=== PATIENT | female | born 1980 | race Caucasian/White ===

== ENCOUNTER 2021-12-25 15:12 | Outpatient (CLI) | payer MEDICAID, SELFPAY ==
[2021-12-25 19:12] LABS: Chlamydia DNA Amplified* NOT DETECTED (No Detected); GC DNA Amplified* NOT DETECTED (No Detected)
== END 2021-12-25 15:13 | disposition home or self-care (01) ==
PROVIDERS: Visit Provider Registered Nurse
DX: R10.2 Pelvic and perineal pain (principal); R35.0 Frequency of micturition
CPT/HCPCS: 87086; 87186; 87491; 87591

== ENCOUNTER 2021-12-28 20:45 | Emergency (ER) | payer MEDICAID, SELFPAY ==
[2021-12-28 21:11] VITALS: BP 112/69; PULSE 74; RESP 18; TEMP 37; O2SAT 99; BMI 22.5
--- NOTE | 2021-12-28 21:30 | ED.SKABFB ---
HPI - Skin/Abscess/Foreign Bdy General Chief complaint: Skin/Abscess/Foreign Body Stated complaint: rash on chest, asthma Time Seen by Provider: 12/28/21 21:14 History of Present Illness HPI narrative: This 41-year-old female comes in reporting a generalized pruritic maculopapular rash to began 2 hours ago. She does not report any shortness of breath. She does not have any signs of angioedema. She has been taking Macrobid for urinary tract infection these past 4 days. Though symptoms of dysuria have completely resolved. She states that she did eat shrimp recently but has tolerated this in the past. Related Data Home Medications Medication Instructions Recorded Confirmed cholecalciferol (vitamin D3) 25 25 mcg PO QDAY 12/25/21 12/25/21 mcg (1,000 unit) capsule multivitamin (Multiple Vitamins 1 tab PO QAM 12/25/21 12/25/21 tablet) Previous Rx's Medication Instructions Recorded nitrofurantoin 100 mg PO BID #10 caps 12/25/21 monohydrate/macrocrystals 100 mg capsule (Macrobid) Allergies Allergy/AdvReac Type Severity Reaction Status Date / Time No Known Drug Allergies Allergy Verified 12/25/21 14:46 Review of Systems Status of ROS: Reports: 10 or more systems reviewed and unremarkable except as noted in History and below Narrative: Constitutional: No fevers, no weight gain or loss. Eyes: No discharge. No vision changes. HENT: No congestion, no sore throat, no ear pain. Cardiovascular: No chest pain, no palpitations. Respiratory: No shortness of breath, no wheezes, no cough. Gastrointestinal: No abdominal pain, no vomiting, no diarrhea. Genitourinary: No dysuria, no hematuria. Musculoskeletal: Normal range of motion. Skin: Generalized pruritic rash. Neurological: No dizziness, weakness, sensory change, speech change. Endo/Heme/Allergies: No bruising or bleeding. No polydipsia. Pysch: no suicidality, no anxiety, no insomnia. All other systems reviewed and are negative. PFSH PFSH Surgical History H/O tubal ligation History of colposcopy Family History Father Colon cancer High blood pressure Sister Thyroid disease Exam Narrative: Exam Narrative: Constitutional: Well-developed, well-nourished, no acute distress. HEENT: Normocephalic, atraumatic. Neck: Normal range of motion. Nontender. Supple. Heart: Regular. No murmurs. Normal rate. Intact distal pulses. Lungs: Clear to auscultation. No chest discomfort. No wheezes, rhonchi, or rales. Abdomen: Normal bowel sounds. Nontender. No rebound tenderness. Genitalia: Deferred. Back: No midline tenderness. Normal range of motion. Extremities: Normal range of motion. No injury. Skin: Intact. Warm. No erythema or pallor. Generalized maculopapular rash on trunk and extremities which is pruritic. Neurologic: No altered sensation. No weakness. Alert and oriented. Psychiatric: No suicidality. No anxiety or depression. No insomnia. Nursing notes and vitals signs are reviewed. Const: Vital Signs, click to edit/add: Vital Signs - 24 hr 12/28/21 21:11 Temperature 98.6 F Pulse Rate [Right Pulse Oximeter] 74 Respiratory Rate 18 Blood Pressure [Ri ght Upper Arm] 112/69 Pulse Oximetry 99 Oxygen Delivery Me thod Room Air Course Vital Signs Vital signs: Initial Vital Signs Temperature 98.6 F 12/28/21 21:11 Temperature Source Temporal Artery Scan 12/28/21 21:11 Pulse Rate 74 12/28/21 21:11 Respiratory Rate 18 12/28/21 21:11 Blood Pressure 112/69 12/28/21 21:11 Blood Pressure Mean 83 12/28/21 21:11 Blood Pressure Position Sitting 12/28/21 21:11 Pulse Oximetry 99 12/28/21 21:11 Oxygen Delivery Method 12/28/21 21:11 Vital Signs Temperature 98.6 F 12/28/21 21:11 Pulse Rate 74 12/28/21 21:11 Respiratory Rate 18 12/28/21 21:11 Blood Pressure 112/69 12/28/21 21:11 Pulse Oximetry 99 12/28/21 21:11 Oxygen Delivery Method 12/28/21 21:11 Temperature 98.6 F 12/28/21 21:11 Pulse Rate 74 12/28/21 21:11 Respiratory Rate 18 12/28/21 21:11 Blood Pressure 112/69 12/28/21 21:11 Pulse Oximetry 99 12/28/21 21:11 Oxygen Delivery Method 12/28/21 21:11 MDM - Skin/Abscess/Foreign Bdy MDM Narrative Medical decision making narrative: This patient comes in with a rash that started a couple hours prior to arrival. She is not showing any signs of angioedema. I explained that it is often a mystery as to what is causing the rash. There is some suspicion with the Macrobid she has been taking but I explained there is no testing that will identify this at this time. Her dysuria symptoms have completely resolved and she has taken this medicine for 4 days. I advised her to discontinue it. She did receive an oral dose of dexamethasone 10 mg and advised her to use [id number] antihistamines as needed and directed. Discharge Plan Discharge Clinical Impression: Allergic reaction Patient Disposition: Home, Self-Care Condition: Stable Additional Instructions: Use [id number] medicines such as antihistamines or hydrocortisone cream as needed and directed. Follow up with MD or return if worsening. Prescriptions: No Action multivitamin [Multiple Vitamins] Tablet 1 tab PO QAM cholecalciferol (vitamin D3) 25 mcg (1,000 unit) capsule 25 mcg PO QDAY nitrofurantoin monohyd/m-cryst [Macrobid] 100 mg capsule 100 mg PO BID Qty: 10 0RF Rx Instructions: must administer with a meal/food Follow Up/Referrals: Provider,Not a Local [Primary Care Provider] - Stand Alone Forms: [employer] Info Instructions
[2021-12-28] MEDS: dexAMETHasone 10 MG/ML inj PO (21:34)
[2021-12-28 22:00] VITALS: BP 110/78; PULSE 70; RESP 18; TEMP 37; O2SAT 99
== END 2021-12-28 22:05 | disposition home or self-care (01) ==
LOC: ED 21:36
PROVIDERS: Emergency Provider Emergency Medicine Emergency Medical Services
DX: T78.40XA Allergy, unspecified, initial encounter (principal); X58.XXXA Exposure to other specified factors, initial encounter
CPT/HCPCS: 99283; 99284; J1100

== ENCOUNTER 2022-01-06 15:39 | Emergency (ER) | payer MEDICAID, SELFPAY ==
[2022-01-06 15:57] VITALS: BP 107/69; PULSE 114; RESP 18; TEMP 36.9; O2SAT 97; BMI 25.7
[2022-01-06 16:45] LABS: PCR FLU A POSITIVE PCR FLU A (Negative); PCR FLU B Negative PCR FLU B (Negative); PCR RSV Negative PCR RSV (Negative)
[2022-01-06 16:52] LABS: SARS PCR* Negative SARS-CoV-2 (Negative)
--- NOTE | 2022-01-06 18:08 | ED.GENADULT ---
HPI - General Adult General Chief complaint: Cough Stated complaint: Fever, Painful Cough Time Seen by Provider: 01/06/22 17:00 History of Present Illness HPI narrative: This 41-year-old female comes in reporting upper respiratory symptoms including cough, nasal congestion, and chest discomfort when coughing. She has felt chilled but did not measure a temperature. These symptoms started yesterday. She states that she has a history of asthma and has been using her inhaler. She does not report significant shortness of breath. Related Data Home Medications Medication Instructions Recorded Confirmed cholecalciferol (vitamin D3) 25 25 mcg PO QDAY 12/25/21 12/25/21 mcg (1,000 unit) capsule multivitamin (Multiple Vitamins 1 tab PO QAM 12/25/21 12/25/21 tablet) Previous Rx's Medication Instructions Recorded nitrofurantoin 100 mg PO BID #10 caps 12/25/21 monohydrate/macrocrystals 100 mg capsule (Macrobid) ciprofloxacin HCl 500 mg tablet 500 mg PO BID #10 tabs 12/29/21 (Cipro) acetaminophen 300 mg-codeine 30 mg 1 tab PO Q6H PRN pain #20 tabs 01/06/22 tablet methylprednisolone 4 mg tablets in See Rx Instructions PO .COMPLEX 01/06/22 a dose pack (Medrol (Levon)) #21 ea oseltamivir 75 mg capsule (Tamiflu) 75 mg PO BID 5 days #10 caps 01/06/22 Allergies Allergy/AdvReac Type Severity Reaction Status Date / Time No Known Drug Allergies Allergy Verified 12/25/21 14:46 Review of Systems Status of ROS: Reports: 10 or more systems reviewed and unremarkable except as noted in History and below Narrative: Constitutional: No weight gain or loss. She has had chills. Eyes: No discharge. No vision changes. HENT: No congestion, no sore throat, no ear pain. Cardiovascular: No chest pain, no palpitations. Respiratory: No shortness of breath, no wheezes. She reports coughing. Gastrointestinal: No abdominal pain, no vomiting, no diarrhea. Genitourinary: No dysuria, no hematuria. Musculoskeletal: Normal range of motion. Skin: No rashes, no pruritis. Neurological: No dizziness, weakness, sensory change, speech change. Endo/Heme/Allergies: No bruising or bleeding. No polydipsia. Pysch: no suicidality, no anxiety, no insomnia. All other systems reviewed and are negative. [facility] Medical History (Updated 01/06/22 @ 18:11 by Liam Callahan MD) Asthma Surgical History H/O tubal ligation History of colposcopy Family History Father Colon cancer High blood pressure Sister Thyroid disease Social History Smoking Status: Never smoker Do you use any of these nicotine containing products: None Second hand tobacco smoke exposure: No How often do you have a drink containing alcohol: never How often do you have six or more drinks on one occasion: Never AUDIT-C Alcohol total score: 0 Non-prescribed substance use: denies use Exam Narrative: Exam Narrative: Constitutional: Well-developed, well-nourished, no acute distress. HEENT: Normocephalic, atraumatic. Neck: Normal range of motion. Nontender. Supple. Heart: Regular. No murmurs. Tachycardia, rate 114 beats per minute. Intact distal pulses. Lungs: Clear to auscultation. No chest discomfort. No wheezes, rhonchi, or rales. Abdomen: Normal bowel sounds. Nontender. No rebound tenderness. Genitalia: Deferred. Back: No midline tenderness. Normal range of motion. Extremities: Normal range of motion. No injury. Skin: Intact. No rash. Warm. No erythema or pallor. Neurologic: No altered sensation. No weakness. Alert and oriented. Psychiatric: No suicidality. No anxiety or depression. No insomnia. Nursing notes and vitals signs are reviewed. Const: Vital Signs, click to edit/add: Vital Signs - 24 hr 01/06/22 15:57 Temperature 98.4 F Pulse Rate [Right Pulse Oximeter] 114 H Respiratory Rate 18 Blood Pressure [Ri ght Upper Arm] 107/69 Pulse Oximetry 97 Oxygen Delivery Me thod Room Air Course Vital Signs Vital signs: Initial Vital Signs Temperature 98.4 F 01/06/22 15:57 Temperature Source Temporal Artery Scan 01/06/22 15:57 Pulse Rate 114 H 01/06/22 15:57 Respiratory Rate 18 01/06/22 15:57 Blood Pressure 107/69 01/06/22 15:57 Blood Pressure Mean 81 01/06/22 15:57 Blood Pressure Position Sitting 01/06/22 15:57 Pulse Oximetry 97 01/06/22 15:57 Oxygen Delivery Method 01/06/22 15:57 Vital Signs Temperature 98.4 F 01/06/22 15:57 Pulse Rate 114 H 01/06/22 15:57 Respiratory Rate 18 01/06/22 15:57 Blood Pressure 107/69 01/06/22 15:57 Pulse Oximetry 97 01/06/22 15:57 Oxygen Delivery Method 01/06/22 15:57 Temperature 98.4 F 01/06/22 15:57 Pulse Rate 114 H 01/06/22 15:57 Respiratory Rate 18 01/06/22 15:57 Blood Pressure 107/69 01/06/22 15:57 Pulse Oximetry 97 01/06/22 15:57 Oxygen Delivery Method 01/06/22 15:57 Medical Decision Making MDM Narrative Medical decision making narrative: A swab is obtained to evaluate for COVID, influenza, and RSV. This returns positive for influenza A. The patient has normal vital signs other than increased heart rate. She is okay to return home. She received prescriptions for Tamiflu, Tylenol 3, and Medrol Dosepak. I describe signs and symptoms that would indicate a need for return and re-evaluation. At the time of discharge the patient appears safe for outpatient management. The treatment plan is reviewed along with written and verbal return precautions. Reasons to return and the importance of close followup were also reviewed. Lab Data Labs: Lab Results 01/06/22 Range/Units 16:02 SARS-CoV-2 (PCR) Negative SARS-CoV-2 (Negative) Influenza Type A (PCR) POSITIVE PCR FLU A A (Negative) Influenza Type B (PCR) Negative PCR FLU B (Negative) RSV (PCR) Negative PCR RSV (Negative) Discharge Plan Discharge Clinical Impression: Influenza A Patient Disposition: Home, Self-Care Condition: Stable Additional Instructions: Take medications as needed and indicated. Follow up with MD or return if worsening. Prescriptions: New acetaminophen-codeine 300-30 mg tablet 1 tab PO Q6H PRN (Reason: pain) Qty: 20 0RF oseltamivir [Tamiflu] 75 mg capsule 75 mg PO BID 5 Days Qty: 10 0RF methylprednisolone [Medrol (Levon)] 4 mg tablets,dose pack See Rx Instructions .ROUTE .COMPLEX Qty: 21 0RF Rx Instructions: orally per package directions No Action multivitamin [Multiple Vitamins] Tablet 1 tab PO QAM cholecalciferol (vitamin D3) 25 mcg (1,000 unit) capsule 25 mcg PO QDAY nitrofurantoin monohyd/m-cryst [Macrobid] 100 mg capsule 100 mg PO BID Qty: 10 0RF Rx Instructions: must administer with a meal/food ciprofloxacin HCl [Cipro] 500 mg tablet 500 mg PO BID Qty: 10 0RF Follow Up/Referrals: Provider,Not a Local [Primary Care Provider] - Stand Alone Forms: [employer] Info Instructions
== END 2022-01-06 18:25 | disposition home or self-care (01) ==
LOC: ED 18:18
PROVIDERS: Emergency Provider Emergency Medicine Emergency Medical Services
DX: J10.1 Influenza due to other identified influenza virus with other respiratory manifestations (principal)
CPT/HCPCS: 87502; 87634; 87635; 99283; 99284

== ENCOUNTER 2023-04-08 14:04 | Outpatient (CLI) | payer MEDICAID, SELFPAY | END 2023-04-08 14:05 | disposition home or self-care (01) | PROVIDERS: Visit Provider Obstetrics & Gynecology | DX: Z13.220 Encounter for screening for lipoid disorders (principal); Z86.2 Personal history of diseases of the blood and blood-forming organs and certain disorders involving the immune mechanism; R53.83 Other fatigue | CPT/HCPCS: 80061; 82306; 83540; 83550; 84443 ==

== ENCOUNTER 2023-04-22 14:39 | Outpatient (CLI) | payer MEDICAID, SELFPAY ==
--- NOTE | 2023-04-22 15:00 | US_ITS ---
Patient: ESTEPHANIA LADD Facility:?[facility] Patient ID:?[id number] Site Patient ID:?[id number]. Site :?[id number] Study:?US-OB Pelvis TA/TV Pelvic US-04/22/2023 4:45:13 PM Ordering Physician:Zoey Leos Final Report: INDICATION: Pelvic pain. TECHNIQUE: Ultrasound pelvis transabdominal. COMPARISON: None. FINDINGS: Uterus: 9 x 6 x 4 cm. Anterior fundal intramural fibroid measures 9 mm. Endometrium: Transvaginal imaging was performed to better evaluate the endometrium. Endometrial thickness measures 14 mm. There are 2 small echogenic lesions in the endometrium which could represent polyps with internal color Doppler blood flow. Right ovary measures 3 x 2 x 2 cm and left ovary measures 3 x 3 x 2 cm. No suspicious ovarian or adnexal lesions. Color Doppler blood flow is demonstrated in the ovaries. Cul-de-sac: No significant free fluid. IMPRESSION: 1. Solitary small 9 mm uterine fibroid. 2. Suspected endometrial polyps. . Dictated by Dion Borja MD @ 04/25/2023 1:52:47 AM Signed by:?Dion Borja MD @04/25/2023 1:52:47 AM (Electronic Signature)
== END 2023-04-22 14:40 | disposition home or self-care (01) ==
LOC: US 14:40
PROVIDERS: Visit Provider Obstetrics & Gynecology
DX: R10.2 Pelvic and perineal pain (principal); D25.9 Leiomyoma of uterus, unspecified; R10.32 Left lower quadrant pain
CPT/HCPCS: 76830; 76856

== ENCOUNTER 2023-06-08 08:13 | Day surgery (SDC) | payer MEDICAID, SELFPAY ==
--- OUTSIDE RECORDS SUMMARY | 2023-06-08 08:17 | XMS_ITS | Clinical Summary ---
Author Name Unknown Organization [employer] [facility] Address [place], [place] [address] Care Team Providers Care Crawler Tractor Operator Name Role Phone [facility] Primary Care Provider [phone] Allergies No known active allergies Medications Medication Sig Dispensed Refills Start Date End Date Status albuterol HFA (PRO-AIR; VENTOLIN; PROVENTIL) 90 mcg/actuation inhalerIndications: Mild persistent asthma without complication Inhale 2 Puffs by mouth 4 times daily if needed for Shortness Of Breath or Wheezing. 1 Each 09/14/2021 Active meclizine (ANTIVERT) 25 mg tabletIndications:L ightheadedness,Dizz iness Take 1 Tablet (25 mg) by mouth 3 times daily if needed for Vertigo or Motion Sickness. 30 Tablet 07/23/2021 4 Discontinued (*Patient states no longer taking) codeine-guaiFENesin (ROBITUSSIN AC) 10-100 mg/5 mL liquidIndications:U pper respiratory tract infection, unspecified type Take 5-10 mL by mouth every 6 hours if needed for Cough. Max dose 60 mL per 24 hrs. 236 mL 09/14/2021 4 Discontinued (*Med complete/Reg imen complete/Lev el of care change) calcium carbonate-vitamin D3, 600 mg-400 unit, 600 mg-10 mcg (400 unit) tabletIndications:V itamin D insufficiency Take 1 Tablet by mouth two times daily with meals. 200 Tablet 4 12/28/2021 4 Discontinued (*Patient states no longer taking) methylPREDNISolone (MEDROL DOSEPAK) 4 mg tablet 01/06/2022 4 Discontinued (*Med complete/Reg imen complete/Lev el of care change) acetaminophen-codei ne (TYLENOL #3) 300-30 mg per tablet 01/06/2022 4 Discontinued (*Med complete/Reg imen complete/Lev el of care change) nitrofurantoin macrocrystals/monoh ydrate (MACROBID) 100 mg capsule 12/25/2021 4 Discontinued (*Med complete/Reg imen complete/Lev el of care change) amoxicillin (AMOXIL) 500 mg capsuleIndications: Streptococcus exposure Take 2 Capsules (1,000 mg) by mouth once daily for 10 days. 20 Capsule 05/13/2023 4 Active Problems Problem Noted Date Diagnosed Date Encounters for unspecified administrative purpos e 08/16/2022 Myopia of both eyes with astigmatism 03/22/2019 Encounters Date Type Department Care Team Description 05/13/2023 1:10 PM CDT Office Visit [facility] [address] [place] [phone] Tabatha Kahn NP Throat Pain/problem (Patient presents to urgent care today with C/O having a sore throat, ear pain,low back pain and chills. Her daughter tested positive on Tuesday05/09/2023 to strep. 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 Office Visit [facility] [address] [place] [address] Jose Alfredo Maxwell E, OD Eye Exam (CEE) 03/25/2023 Travel from Last 3 Months Immunizations Name Administration Dates Next Due COVID-19 vaccine (ImageProtect-Bio NTech 30mcg/0.3mL) 12YO+ ADAM-SUCROSE PF, MDV 02/26/2021 Influenza, IIV4 (=>6mos) MDV 11/28/2018 Tdap 07/03/2016,06/15/2016 Family History Medical History Relation Name Comments Asthma Father Cancer-colon Father Hypertension Father Cancer-breast Other paternal great grandmother Anesthesia Malignant Hyperthermia No Family History Blood Disease No Family History Relation Name Status Comments Father Other Social History Tobacco Use Types Packs/Day Years Used Date Smoking Tobacco: Never Smokeless Tobacco: Never Tobacco Cessation:Counseling Given: Yes Alcohol Use Standard Drinks/Week Comments No 0 (1 standard drink = 0.6 oz pur e alcohol) PHQ-2 Answer Date Recorded PHQ-2 TOTAL SCORE 4 04/19/2022 Social Connections Answer Date Recorded Frequency of Communication with Friends and Fami ly 0 05/13/2023 Financial Resource Strain Answer Date R ecorded Difficulty of Paying Living Expenses 3 05/13/2023 Difficulty of Paying Living Expenses Not on file 05/13/2023 Food Insecurity Answer Date Recorded Worried About Running Out of Food in the Last Ye ar 1 05/13/2023 Transportation Needs Answer Date Record ed Lack of Transportation (Medical) 1 05/13/2023 Housing Stability Answer Date Recorded Unable to Pay for Housing in the Last Year 1 05/13/2023 Sex and Gender Information Value Date Recorded Sex Assigned at Not on file Gender Identity Not on file Sexual Orientation Not on file Obstetrics History Para Term AB IAB SAB Ectopic Multiple Livin g Live Births 6 5 5 1 5 Date Outcome GA Total Labor Labor/2nd/3rd Weight Sex Delivery Anes PTL Niki A1 A5 Name Cl in Term Term Term Term Term AB Comments No complications, 5 vaginal deliveries. Last Filed Vital Signs Vital Sign Reading Time Taken Comments Blood Pressure 100/54 05/13/2023 2:18 PM CDT Pulse 71 05/13/2023 2:18 PM CDT Temperature 36.2 ??C (97.2 ??F) 05/13/2023 2:18 PM CD T Respiratory Rate 16 05/13/2023 2:18 PM CDT Oxygen Saturation 99% 05/13/2023 2:18 PM CDT Inhaled Oxygen Concentration - - Weight 64.9 kg (143 lb) 05/13/2023 2:18 PM CDT Height 157.5 cm (5' 2) 08/18/2022 5:48 PM CDT Body Mass Index 26.16 08/18/2022 5:48 PM CDT Plan of Treatment Health Maintenance Due Date Last Done Comments HIV for age 15-65 1997 Hepatitis C screening for age 18-79 2000 BMI (ht and wt on same day) for age 18+ 12/03/2021 12/03/2020, 06/18/2020, 04/23/2020, Additional history exists Depression screening for age 12+ 04/20/2023 04/19/2022, 03/01/2022, 01/01/2019, Additional history exists Influenza for age 9-49 10/16/2023 11/28/2018 Pap test for age 21-65 07/31/2024 2, 07/31/2021, 07/04/2020, Additional history exists Tetanus booster 07/03/2026 07/03/2016, 06/15/2016 Tdap Completed 07/03/2016, 06/15/2016 COVID-19 vaccine series Completed 04/08/19, 02/26/2021, 09/18/2020 Pneumococcal series for age 6-64 Aged Out No longer eligible based on patient's age to complete this topic Procedures Procedure Name Priority Date/Time Associated Diagnosis Comments STREP A PCR STAT 05/13/2023 2:45 PM CDT Sore throat THROAT RAPID STREP A WITH REFLEX STAT 05/13/2023 2:45 PM CDT Sore throat LAB TRACKING EVENT Routine 05/02/2023 12 :30 PM CDT PATH TISSUE EXAM Routine 05/02/2023 12:3 0 PM CDT [employer] ADVANCED OPERATOR MAINTAINER THIN PREP PAP SCREEN IMAGED Routine 07/31/2021 2:00 PM CDT from Last 3 Months or Most Recently Relevant to Health Maintenance Results * STREP A PCR (05/13/2023 2:45 PM CDT) GROUP A STREP Negative 05/14/2023 11:09 PM CDT [facility] Throat SPECIMEN FROM THROAT / Unknown Non-Blood / Unknown 05/13/2023 2:45 PM CDT 05/13/2023 3:02 PM CDT Alda Clark NP MICROBIOLOGY [facility] [address] [place] [address] * THROAT RAPID STREP A WITH REFLEX [36353.1] - age 0 through 17 yrs (05/13/2023 2:45 PM CDT) STREP A ANTIGEN Negative 05/13/2023 3:02 PM CDT [facility] Comment:PCR to follow. Throat SPECIMEN FROM THROAT / Unknown Non-Blood / Unknown 05/13/2023 2:45 PM CDT 05/13/2023 2:50 PM CDT Alda Clark COUPON AND BOND COLLECTION CLERK MICROBIOLOGY [facility] [address] [place], [place] [id number] * LAB TRACKING EVENT (05/02/2023 12:30 PM CDT) Other (Other) Client Collect / Unknown 05/02/2023 12:30 PM CDT 05/03/2023 3:28 PM CDT Zoey Schafer MD LAB BILL ONLY [facility] [address] [place] [address] * PATH TISSUE EXAM (05/02/2023 12:30 PM CDT) Case Report Pathology Report ?Case: [id number] ? Authorizing Provider: ??Zoey Schafer MD ?? Collected: ? 05/02/2023 1230 ? Ordering Location: ? [facility] ?Received: ?05/03/2023 1600 ? Pathologist: ? Tracey Torres MD ? Specimen: ?Endometrial Biopsy ? 05/05/2023 9:12 AM CDT [facility] [employer] [facility] Final Diagnosis A) ENDOMETRIUM, BIOPSY: 1. Secretory endometrium 2. Negative for chronic endometritis 3. Negative for hyperplasia, atypia, and malignancy 05/05/2023 9:[address] [facility] Clinical Information Endometrial polyp. 05/05/2023 9:12 AM CDT [facility] Gross Description A) Received in formalin, labeled with the patient's name and date of , is a 3.0 x 1.5 x 0.2 cm aggregate of pink-zhang mucosa admixed with clotted blood and mucous. The specimen is entirely submitted in 1 cassette. TMO 05/03/2023 05/05/2023 9:12 AM CDT [facility] Microscopic Description The final diagnosis is based on microscopic examination of appropriate sections of all specimens. 05/05/2023 9:12 AM CDT [facility] Additional Information Interpreted at [facility], [facility] Laboratory - [address] [facility] [address], [place] [address] 05/05/2023 9:12 AM T [facility] Other (Endometrial Biopsy) 05/02/2023 12:30 PM CDT 05/03/2023 4:00 PM CDT Zoey Schafer MD PATHOLOGY/CYTOLOG Y [facility] [address] [place] [address], * [employer] ADVANCED OPERATOR MAINTAINER THIN PREP PAP SCREEN IMAGED (07/31/2021 2:00 PM CDT) Case Report Gynecologic Cytology Report ? Case: [id number] ? Authorizing Provider: ??Erica Ojeda, COUPON AND BOND COLLECTION CLERK ?? Collected: ? 07/31/2021 1400 ? Ordering Location: ? [facility] ?Received: ?08/03/2021 1701 ? First Screen: ?Thaddeus Rodriguez ? Specimen: ?[employer] ADVANCED OPERATOR MAINTAINER ThinPrep Vial Screening, Cervical/Vaginal ? 08/19/2021 2:30 PM CDT [facility] INTERPRETATION/ RESULT NEGATIVE FOR INTRAEPITHELIAL LESION OR MALIGNANCY (NIL) (none) 08/19/2021 2:30 PM CDT [facility] IMEN ADEQUACY Satisfactory for evaluation Endocervical component present 08/19/2021 2:30 PM CDT [facility] HPV REQUEST HPV and PAP 08/19/2021 2:30 PM CDT [facility] Last Pap Date 07/04/2020 08/19/2021 2:30 PM CDT [facility] Last Pap Result NIL 2:30 PM CDT [facility] Comment:+HPV Additional Information 08/19/2021 2:30 PM CDT [facility] Comment: Interpreted at [facility] - [address] [place], [place], [place] [address] Automated Review Successful 08/19/2021 2:30 PM CDT [facility] Comment:Specimen processed s uccessfully by automated collision mechanic device, [employer], [employer] ANCILLARY TESTING [employer] ADVANCED OPERATOR MAINTAINER HPV Ordered, Please see separate report 08/19/2021 2:30 PM CDT [facility] Note The pap test is a screening technique, not a diagnostic procedure. It is used primarily to screen for squamous cancers and precursor lesions. Published studies have shown that it is subject to both false negative and false positive results. The pap test should not be used as the sole means to diagnose or exclude pre-malignant and malignant lesions. 08/19/2021 2:30 PM CDT [facility] Other (Cervical/Vagina l) 07/31/2021 2:00 PM CDT 08/03/2021 5:01 PM CDT Erica Ojeda NP PATHOLOGY/CYTOLOG Y [facility] [address] [place] [address], [place] from Last 3 Months or Most Recently Relevant to Health Maintenance Care Teams Crawler Tractor Operator Relationship Specialty Start Date End Date Norma Christianson [address] [place] [address] PCP - General 09/20/17
[2023-06-08 08:30] VITALS: BP 106/68; PULSE 72; RESP 16; TEMP 36.3; O2SAT 100; BMI 26.8
[2023-06-08] MEDS: SODIUM CHLORIDE 0.9 % (FLUSH) 10 ML SYRINGE IVF (08:45)
[2023-06-08] MEDS: LACTATED RINGERS 1000 ML 1,000 ML 100 ML IV (08:45)
[2023-06-08 09:21] LABS: Ur HCG Qualitative* Negative (Negative)
[2023-06-08] MEDS: LIDOCAINE 1% MDV 10 ML INJECTION (10:34)
[2023-06-08 11:00] VITALS: BP 92/67; PULSE 64; RESP 12; TEMP 36.3; O2SAT 98
--- NOTE | 2023-06-08 11:00 | W.ANESCHARGE ---
Anesthesia Charges Start Date/Time Anesthesia Start Date: 06/08/23 Anesthesia Start Time: 10:15 Stop Date/Time Anesthesia Stop Date: 06/08/23 Anesthesia Stop Time: 11:00
--- NOTE | 2023-06-08 11:02 | W.PM.H&PU ---
History & Physical Update History & Physical Update H&P Reviewed and patient assessed: The following changes are noted below H&P Updates: Farhana reports particularly heavy menses the last three cycles. She is currently having menses. She Is interested insertion of Mirena IUD. Our plan, in addition to hysteroscopy, polypectomy, dilation and curettage, will be insertion of Mirena IUD for menorrhagia. We discussed risks of Mirena insertion, including change in bleeding patterns after insertion, infection, uterine perforation, expulsion of IUD. This procedure was added to the consent form, which was again signed by the patient .
--- NOTE | 2023-06-08 11:04 | P.GYNPRC_ITS ---
Procedure Note Date of procedure: 06/08/23 Will [facility] bill your pro fee for this procedure?: Yes Pre-op diagnosis: Menorrhagia Suspected endometrial polyp on pelvic ultrasound Post-op diagnosis: menorrhagia endometrial polyp Procedure: Hysteroscopy, polypectomy, dilation and curettage, insertion of Mirena IUD Anesthesia: MAC and local Complications: none Surgeon: Zoey Schafer MD Estimated blood loss (mL): 5 IV fluids (mL): 800 Urine Output (mL): 120 Pathology: specimen obtained, sent to pathology ( endometrial curettings. I confirmed desired to send this specimen and the appropriate name of specimen at time of postoperative debrief.) Condition: stable Disposition: same day Findings: Saline deficit 60 mL 1. On exam under anesthesia, the uterus was mobile and anteverted without any palpable adnexal masses. Cervix and vagina were normal in appearance. 2. Upon hysteroscopy, survey of endocervix was normal. Survey of the endometrial cavity revealed thickened endometrium with blood clot, consistent in appearance with menstrual endometrium. Most of the thickening was along the posterior wall, and there was at least 1 identifiable polyp within this near the left uterine cornua measuring approximately 1 cm. Uterine cavity shape was normal, as were the tubal ostia. Uterine sounded depth was 8.3 cm. Procedure Description: Patient was taken to the operating room with IV running. She was positioned in dorsal lithotomy position with her legs fully supported in Yellofin stirrups. Monitored anesthesia care was administered. She was prepped and draped in the usual sterile fashion. Exam under anesthesia was performed for the above-noted findings. Speculum was inserted. Cervix visualized and grasped along the anterior lip with an Allis clamp. Cervix was serially dilated to accommodate the TRUCLEAR hysteroscope. This was assembled with saline inflow and outflow in place. The line was flushed of bubbles. The hysteroscope was advanced through the cervix into the endometrial cavity for the above noted findings. The tissue morcellator was then inserted through the operating channel. Window lock was performed. Under direct visualization, the endometrial cavity was circumferentially curetted with the tissue morcellator. The hysteroscope and morcellator were then removed from the uterus. Uterus sounded to 8.3 cm. The Mirena IUD was retracted into the insertion tube and inserted to the sounded depth. IUD was deployed at the fundus. Insertion tube was removed and strings were trimmed to a length of 3 cm. The Allis clamp was removed from the anterior lip of cervix. Hemostasis was noted. Patient tolerated procedure well. She was taken to recovery area in stable condition.
[2023-06-08 11:15] VITALS: BP 94/62; PULSE 58; RESP 12; O2SAT 96
--- NOTE | 2023-06-08 11:19 | W.ANESCHARGE ---
Anesthesia Charges Start Date/Time Anesthesia Start Date: 06/08/23 Anesthesia Start Time: 10:15 Stop Date/Time Anesthesia Stop Date: 06/08/23 Anesthesia Stop Time: 11:00
[2023-06-08 11:30] VITALS: BP 99/58; PULSE 61; RESP 12; O2SAT 97
[2023-06-08 11:45] VITALS: BP 108/67; PULSE 61; RESP 12; O2SAT 96
== END 2023-06-08 12:05 | disposition home or self-care (01) ==
PROVIDERS: PCP Physician Assistant; Visit Provider Obstetrics & Gynecology
PROC: 0UDB8ZZ Extraction of Endometrium, Via Natural or Artificial Opening Endoscopic (ICD-10-PCS; CPT 58558; principal; 2023-06-08 09:45)
DX: N92.0 Excessive and frequent menstruation with regular cycle (principal); N84.0 Polyp of corpus uteri; Z30.430 Encounter for insertion of intrauterine contraceptive device
CPT/HCPCS: 58558; 58300; 00952; 36415; 81025; 86850; 86900; 86901; 88305; J1100; J1885; J2405; J2704; J3010; J7120; J7298

== ENCOUNTER 2024-02-04 12:13 | Emergency (ER) | payer SELFPAY ==
[2024-02-04 12:26] VITALS: BP 104/66; PULSE 83; RESP 16; TEMP 36.4; O2SAT 100; BMI 26.5
--- NOTE | 2024-02-04 13:33 | ED.FALL ---
HPI - Fall General Time Seen by Provider: 13:34 Date Seen: 02/04/24 Chief Complaint: Fall/Minor Trauma Stated Complaint: fell,having urinary incontinence Time Seen by Provider: 02/04/24 13:31 Source: patient and RN notes reviewed Mode of arrival: ambulatory Limitations: no limitations History of Present Illness HPI Narrative: This 43-year-old female is ambulatory into the ED with concerns of complaint of urinary incontinence and pelvic pain after a fall on January 29. She fell in an icy parking lot on January 29, landed on her buttocks. She states it felt as if she lost her water during , was just wet. Since then, has been noting bladder dribbling, feels that she does not have complete control of her bladder. She since the fall has noted pelvic pain, pain in the perineum. She has noted no vaginal bleeding, no blood in her urine. It is hurting in the pelvic area to walk. She does complain of low back pain. She notes no weakness in her legs with walking, no numbness tingling of the perineum or loss of sensation in the perineum, no numbness tingling or loss of sensation in her extremities. She does feel some lower suprapubic abdominal pain. She states bowel habits have been normal, she has control of her bowels without any concerns. Patient does have an IUD in place on review of her problem list. complaint: fall Related Data Home Medications ?Medication ?Instructions ?Recorded ?Confirmed multivitamin (Multiple Vitamins 1 tab PO QAM 12/25/21 06/24/23 tablet) vitamin B complex (B 1 tab PO QDAY 04/08/23 06/24/23 Complex-Vitamin B12 tablet) Previous Rx's ?Medication ?Instructions ?Recorded acetaminophen 500 mg tablet 1,000 mg (2 x 500 mg) PO Q6H PRN 06/08/23 Pain #0 tabs Allergies Allergy/AdvReac Type Severity Reaction Status Date / Time No Known Drug Allergies Allergy Verified 02/04/24 15:57 Review of Systems Status of ROS: Reports: 6 or more systems reviewed and unremarkable except as noted in History and below [facility] Medical History Status post hysteroscopy ?Z98.890 - Other specified postprocedural states (ICD-10) Insomnia ?G47.00 - Insomnia, unspecified (ICD-10) Anxiety ?F41.9 - Anxiety disorder, unspecified (ICD-10) Fatigue ?R53.83 - Other fatigue (ICD-10) Asthma ?J45.909 - Unspecified asthma, uncomplicated (ICD-10) Vitamin D deficiency ?E55.9 - Vitamin D deficiency, unspecified (ICD-10) History of vaginal delivery Surgical History History of colposcopy (08/25/20) ?Z98.890 - Other specified postprocedural states (ICD-10) H/O tubal ligation (2012) ?Z98.51 - Tubal ligation status (ICD-10) Family History Father Colon cancer High blood pressure Asthma Sister Thyroid disease Maternal Grandfather Diabetes Depression Mother Depression Social History Narrative: Patient works at [employer]. Patient is bilingual. Nonsmoker. No alcohol use. What is your current living situation?: I presently have a place to live Problems where you live: no known problems In the past 12 months, utilities in danger of being shut off: no In past 12 months, lack of transportation kept you from medical appts, meetings, work, or getting things needed for daily living: no In the past 12 mos, have been you worried that your food would run out before you had money to buy more?: never true In the past 12 mos, the food you bought just didn't last and you didn't have money to buy more?: never true Smoking Status: Never smoker Do you use any of these nicotine containing products: None Second hand tobacco smoke exposure: No How often do you have a drink containing alcohol: never How often do you have six or more drinks on one occasion: Never AUDIT-C Alcohol total score: 0 Non-prescribed substance use: denies use Caffeine: Yes How often does anyone, including family, friends and others, physically hurt you: never How often does anyone, including family, friends and others, insult or talk down to you: never How often does anyone, including family, friends and others, threaten you with harm: never How often does anyone, including family, friends and others, scream or curse at you: never Are you using contraception or practicing any form of control: No service: No Exam Const: Vital Signs, click to edit/add: Vital Signs - 24 hr 02/04/24 12:26 Temperature 97.5 F L Pulse Rate [Pulse Oximeter] 83 Respiratory Rate 16 Blood Pressure [Ri ght Upper Arm] 104/66 Pulse Oximetry 100 Oxygen Delivery Me thod Room Air This 43-year-old female is ambulatory into the ED of her own accord. She is alert, interactive, no apparent distress, seen in exam room 3. Sclera clear, face atraumatic, able to speak in complete sentences. Lungs are clear, good air entry, no wheezing crackles. CV regular rate and rhythm, no murmur, normal S1-S2. Abdomen is soft, nontender, nondistended, no organomegaly, no rebound or guarding, no masses. She has no inguinal masses or adenopathy, normal light touch sensation in the perineum. Lower extremity strength is 5/5 and symmetric, good distal peripheral pulses in the feet that are symmetric, no skin changes, no edema. Documenting provider has reviewed patient's vital signs: yes Course Course ED Course: Reviewed with patient with the fall and complaints of bladder changes, do need to consider traumatic changes to her back and pelvis. Doubt bladder rupture given her symptoms as she is still holding urine, no hematuria. Will however be doing CT imaging with IV contrast of her abdomen pelvis to rule out traumatic urinary issues. Will also be able to see her pelvis for fractures, will also do lumbar spine. Will get basic urinalysis, confirmed negative urine test but she does have an IUD. Will also get CBC and basic metabolic panel for labs. Reevaluation(s) Time of Reevaluation #1: 15:54 Reevaluation #1: Reviewed normal CTs as far as no traumatic change. She did have incidental finding of cholelithiasis. She states she has been getting heartburn after eating. I reviewed with her that that is not definitively evidence of gallbladder issues. Would recommend [id number] Prilosec, if that was not controlling her symptoms, talk to her primary care provider further. She does not feel like she has any UTI symptoms, has had bladder infections in the past. Vital Signs Vital signs: Initial Vital Signs Temperature 97.5 F L 02/04/24 12:26 Temperature Source Temporal Artery Scan 02/04/24 12:26 Pulse Rate 83 02/04/24 12:26 Pulse Rhythm Regular 02/04/24 12:26 Respiratory Rate 16 02/04/24 12:26 Blood Pressure 104/66 02/04/24 12:26 Blood Pressure Mean 78 02/04/24 12:26 Blood Pressure Position Sitting 02/04/24 12:26 Pulse Oximetry 100 02/04/24 12:26 Oxygen Delivery Method Room Air 02/04/24 12:26 Vital Signs Temperature 97.5 F L 02/04/24 12:26 Pulse Rate 83 02/04/24 12:26 Respiratory Rate 16 02/04/24 12:26 Blood Pressure 104/66 02/04/24 12:26 Pulse Oximetry 100 02/04/24 12:26 Oxygen Delivery Method Room Air 02/04/24 12:26 Temperature 97.5 F L 02/04/24 12:26 Pulse Rate 83 02/04/24 12:26 Respiratory Rate 16 02/04/24 12:26 Blood Pressure 104/66 02/04/24 12:26 Pulse Oximetry 100 02/04/24 12:26 Oxygen Delivery Method Room Air 02/04/24 12:26 MDM - Fall Lab Data Attestation: I reviewed the patient's lab results. Labs: Lab Results 02/04/24 02/04/24 Range/Units 13:45 Unknown WBC 5.91 (4.50-11.00) K/uL RBC 4.08 (4.00-5.20) m/uL Hgb 12.4 (12.0-16.0) gm/dL Hct 37.5 (33.0-51.0) % MCV 92 (80-100) fL MCH 30 (26-34) pg MCHC 33 (32-36) gm/dL RDW Coeff of Janay 12.3 (11.5-15.5) % Plt Count 251 (140-440) K/uL Neut % (Auto) 66.5 (42.0-72.0) % Lymph % (Auto) 22.8 (20-44) % Wilson % (Auto) 7.6 (0.0-11.0) % Eos % (Auto) 2.2 (0.0-7.0) % Baso % (Auto) 0.7 (0.0-3.0) % Neut # (Auto) 3.93 (1.7-7.0) K/uL Lymph # (Auto) 1.35 (0.90-2.90) K/uL Wilson # (Auto) 0.40 (0.00-0.90) K/UL Eos # (Auto) 0.13 (0.00-0.50) K/uL Baso # (Auto) 0.04 (0.00-0.30) K/uL Abs Immat Gran (auto) 0.01 (0.00-0.30) K/uL Imm/Tot Granulo (auto) 0.2 % Sodium 138 (135-149) mmol/L Potassium 3.7 (3.6-5.1) mmol/L Chloride 105 (96-114) mmol/L Carbon Dioxide 25 (20-32) mmol/L Anion Gap 8 (7-15) mEq/L BUN 16 (5-24) mg/dL Creatinine 0.5 (0.5-1.5) mg/dL Estimated Creat Clear 111.73 Estimated GFR 121 ml/min Glucose 96 (60-115) mg/dL Calcium 9.0 (8.4-10.6) mg/dL Urine Color Yellow (Yellow) Urine Appearance Slightly Cloudy A (Clear) Urine pH 6.0 (5.0-8.5) Ur Specific [place] >= 1.030 (1.000-1.030) Urine Protein Negative (Negative) Urine Glucose (UA) Negative (Negative) Urine Ketones Negative (Negative) Urine Blood Negative (Negative) Urine Nitrite Negative (Negative) Urine Bilirubin Negative (Negative) Urine Urobilinogen 0.2 (0.2-1.0) Ur Leukocyte Esterase Negative (Negative) Urine RBC 0-2 (0-2) Urine WBC 0-2 (0-5) Ur Squamous Epith Cells Moderate A (None-Few) Urine Bacteria Moderate A (None) Urine HCG, Qual Negative (Negative) Imaging Data CT scan - abdomen: Attestation: I have reviewed the pertinent imaging results. Radiologist's impression: Patient: KDNamrata LADD Facility:?[facility] Patient ID:?[id number] Site Patient ID:?[id number]. Site :?[id number] Study:?CT-Abdomen/Pelvis W ISOVUE 370-02/04/2024 2:15:49 PM Ordering Physician:Patricia Lim Final Report: INDICATION: Pelvic pain, urinary incontinence. TECHNIQUE: CT abdomen and pelvis acquired with 100 cc Omnipaque 350 IV contrast. COMPARISON: None. FINDINGS: Lower chest: Incomplete visualization of 6 millimeter right upper lobe subpleural pulmonary nodule (series 4/image 2). Liver: Unremarkable. Normal in size and attenuation. No suspicious masses. Gallbladder and bile ducts: Cholelithiasis without acute cholecystitis. Pancreas: Unremarkable. No mass or inflammation. Spleen: Unremarkable. Normal in size. No masses. Adrenal glands: Unremarkable. No nodules. Kidneys: Unremarkable. No suspicious masses, stones, or hydronephrosis. GI tract: Mild colonic stool burden. Normal in caliber. No sign of mass or inflammation. Normal appendix. Vasculature: Abdominal aorta is normal in caliber. Mesenteric arteries are patent. Lymph nodes: No lymphadenopathy. Peritoneum/Abdominal Wall: Unremarkable. No sign of mass or infiltration. No free air or significant free fluid. Pelvis: Intrauterine device. Bones: Unremarkable for age. IMPRESSION: No acute intra-abdominal/pelvic abnormality. Mild colonic stool burden. Cholelithiasis without acute cholecystitis. Please note that all CT scans at this facility use dose modulation, iterative reconstruction, and/or weight-based dosing when appropriate to reduce radiation dose to as low as reasonably achievable. Dictated by Oziel Meza MD @ 02/04/2024 3:08:53 PM (Electronic Signature) CT lumbar spine: Attestation: I have reviewed the pertinent imaging results. Radiologist's impression: Patient: KD LADD Facility:?[facility] Patient ID:?[id number] Site Patient ID:?[id number]. Site :?[id number] Study:?CT-Spine Lumbar WO-02/04/2024 2:16:15 PM Ordering Physician:Patricia Lim Final Report: INDICATION: Fall. Low back pain. Urinary incontinence. TECHNIQUE: CT of the lumbar spine without contrast. Coronal and sagittal reformats are included. COMPARISON: None. FINDINGS: Fractures and acute findings: None. Hardware and surgical findings: None. Spinal alignment: Within normal limits. Signficant degenerative changes: None. Soft tissues: Within normal limits. IMPRESSION: 1. No acute fracture or traumatic malalignment of the lumbar spine. Please note that all CT scans at this facility use dose modulation, iterative reconstruction, and/or weight-based dosing when appropriate to reduce radiation dose to as low as reasonably achievable. Dictated by Andrew Varghese MD @ 02/04/2024 3:09:49 PM (Electronic Signature) Discharge Plan Discharge Clinical Impression: Fall, Urinary incontinence, Pelvic pain Patient Disposition: Home, Self-Care Condition: Stable Instructions: Gallstones (ED), Urinary Incontinence (ED), Contusion in Adults (ED) Additional Instructions: Baseline can take Tylenol 1000 mg 3 times a day for pain. Add in ibuprofen, 4 400-600 mg 3 to 4 times a day with food can be added for pain management. Recommend clinic follow-up with your primary care provider for recheck within 1 week or as soon as possible. You do have incidental gallstones seen on the CT. Review handout, try low-fat diet. You can talk to your primary care provider about this further as well. Activity Level: Activity as Tolerated Prescriptions: No Action multivitamin [Multiple Vitamins] Tablet 1 tab PO QAM vitamin B complex [B Complex-Vitamin B12] Tablet 1 tab PO QDAY acetaminophen 500 mg Tablet 1,000 mg PO Q6H PRN (Reason: Pain) Qty: 0 0RF Follow Up/Referrals: Provider,Not a Local [Primary Care Provider] - Stand Alone Forms: 3 Four 5 Group Info Instructions
[2024-02-04 13:40] LABS: Appearance Urine Slightly Cloudy (Clear); Bilirubin Urine Negative (Negative); Blood Urine Negative (Negative); Color Urine Yellow (Yellow); Glucose Urine Negative (Negative); Ketones Urine Negative (Negative); Leukocyte Esterase Urine Negative (Negative); Nitrite Urine Negative (Negative); Protein Urine Negative (Negative); Specific Gravity Urine >= 1.030 (1.000-1.030); Urobilinogen Urine 0.2 (0.2-1.0)
[2024-02-04 13:42] LABS: Ur HCG Qualitative* Negative (Negative)
--- NOTE | 2024-02-04 13:42 | CRLHL7_ITS ---
For Patients: As a result of the Cures Act, medical imaging exams and procedure reports are released immediately into your electronic medical record. You may view this report before your referring provider. If you have questions, please contact your health care provider. INDICATION: Fall. Low back pain. Urinary incontinence. TECHNIQUE: CT of the lumbar spine without contrast. Coronal and sagittal reformats are included. COMPARISON: None. FINDINGS: Fractures and acute findings: None. Hardware and surgical findings: None. Spinal alignment: Within normal limits. Signficant degenerative changes: None. Soft tissues: Within normal limits. IMPRESSION: 1. No acute fracture or traumatic malalignment of the lumbar spine. Please note that all CT scans at this facility use dose modulation, iterative reconstruction, and/or weight-based dosing when appropriate to reduce radiation dose to as low as reasonably achievable. Dictated by Andrew Varghese MD @ 02/04/2024 3:09:49 PM (Electronically Signed)
--- NOTE | 2024-02-04 13:43 | CRLHL7_ITS ---
For Patients: As a result of the Century Cures Act, medical imaging exams and procedure reports are released immediately into your electronic medical record. You may view this report before your referring provider. If you have questions, please contact your health care provider. INDICATION: Pelvic pain, urinary incontinence. TECHNIQUE: CT abdomen and pelvis acquired with 100 cc Omnipaque 350 IV contrast. COMPARISON: None. FINDINGS: Lower chest: Incomplete visualization of 6 millimeter right upper lobe subpleural pulmonary nodule (series 4/image 2). Liver: Unremarkable. Normal in size and attenuation. No suspicious masses. Gallbladder and bile ducts: Cholelithiasis without acute cholecystitis. Pancreas: Unremarkable. No mass or inflammation. Spleen: Unremarkable. Normal in size. No masses. Adrenal glands: Unremarkable. No nodules. Kidneys: Unremarkable. No suspicious masses, stones, or hydronephrosis. GI tract: Mild colonic stool burden. Normal in caliber. No sign of mass or inflammation. Normal appendix. Vasculature: Abdominal aorta is normal in caliber. Mesenteric arteries are patent. Lymph nodes: No lymphadenopathy. Peritoneum/Abdominal Wall: Unremarkable. No sign of mass or infiltration. No free air or significant free fluid. Pelvis: Intrauterine device. Bones: Unremarkable for age. IMPRESSION: No acute intra-abdominal/pelvic abnormality. Mild colonic stool burden. Cholelithiasis without acute cholecystitis. Please note that all CT scans at this facility use dose modulation, iterative reconstruction, and/or weight-based dosing when appropriate to reduce radiation dose to as low as reasonably achievable. Dictated by Oziel Meza MD @ 02/04/2024 3:08:53 PM (Electronically Signed)
[2024-02-04 13:55] LABS: Basophils Absolute Auto 0.04 K/uL (0.00-0.30); Basophils Percent Auto 0.7 % (0.0-3.0); Eosinophils Absolute Auto 0.13 K/uL (0.00-0.50); Eosinophils Percent Auto 2.2 % (0.0-7.0); Hematocrit 37.5 % (33.0-51.0); Hemoglobin* 12.4 gm/dL (12.0-16.0); Immature Granulocytes Abs Auto 0.01 K/uL (0.00-0.30); Immature Granulocytes Pct Auto 0.2 %; Lymphocytes Absolute Auto 1.35 K/uL (0.90-2.90); Lymphocytes Percent Auto 22.8 % (20-44); Mean Corpuscular HGB Conc 33 gm/dL (32-36); Mean Corpuscular Hemoglobin 30 pg (26-34); Mean Corpuscular Volume 92 fL (80-100); Monocytes Percent Auto 7.6 % (0.0-11.0); Neutrophils Absolute Auto 3.93 K/uL (1.7-7.0); Neutrophils Percent Auto 66.5 % (42.0-72.0); Platelet Count* 251 K/uL (140-440); RDW Coefficient of Variation % 12.3 % (11.5-15.5); Red Blood Count 4.08 m/uL (4.00-5.20); White Blood Count* 5.91 K/uL (4.50-11.00)
[2024-02-04 13:57] LABS: Bacteria Urine Moderate; RBC Urine 0-2 (0-2); Squamous Epithelial Cell Urine Moderate (None-Few); WBC Urine 0-2 (0-5)
[2024-02-04 14:05] LABS: Slide Review Reflex No
[2024-02-04 14:08] LABS: Chloride* 105 mmol/L (96-114); Potassium* 3.7 mmol/L (3.6-5.1); Sodium* 138 mmol/L (135-149)
[2024-02-04 14:11] LABS: Anion Gap 8 mEq/L (7-15); Blood Urea Nitrogen* 16 mg/dL (5-24); Carbon Dioxide* 25 mmol/L (20-32); Creatinine* 0.5 mg/dL (0.5-1.5); Est. Creatinine Clearance* 111.73; Estimated Glomerular Filt Rate 121 ml/min; Glucose* 96 mg/dL (60-115)
== END 2024-02-04 16:05 | disposition home or self-care (01) ==
PROVIDERS: Emergency Provider Family Medicine
DX: R32 Unspecified urinary incontinence (principal); R10.2 Pelvic and perineal pain; W00.9XXA Unspecified fall due to ice and snow, initial encounter
CPT/HCPCS: 36415; 72131; 74177; 80048; 81001; 81025; 85025; 87086; 99284; Q9967